=== PATIENT | male | born 1965 | race Caucasian/White ===

== ENCOUNTER 2017-10-16 14:45 | Emergency (ER) | payer OTHER ==
[~2017-10-16] VITALS: Ht 180.3 cm; Wt 99.8 kg
[2017-10-16 15:51] VITALS: BP 150/93
--- NOTE | 2017-10-16 16:10 | NUR ---
PT AA&OX4, RR EVEN/UNLABORED AT THIS TIME; PT TO LOBBY AWAITING OPEN BED.
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
--- NOTE | 2017-10-16 17:58 | NUR ---
PER [facility] ELLIOTT, PT IS NOW A PRE-BOOK. PT AMBULATED TO OF AT THIS TIME.
--- NOTE | 2017-10-16 18:04 | NUR ---
52M BIB SELF C/O MID-CHEST PAIN X 1200 TODAY. PT STATES " ALL I WANT IS MY PRESCRIPTION FOR TRAMADOL SO I CAN GO HOME". HX: HTN, DEPRESSION RX: XYPREXA . PT NOW PREBOOK; [place] [employer] AT BEDSIDE; DENIES N/V/D; SKIN IS PINK/WARM/DRY; AAOX4 WITH EVEN AND STEADY GAIT; LUNGS CLEAR BL; HR EVEN AND REGULAR; PT DENIES ANY FEVER, CP, SOB, OR COUGH AT THIS TIME; PATIENT STATES PAIN OF 10/10 AT THIS TIME; VSS; PATIENT POSITIONED FOR COMFORT; ER MD MADE AWARE OF PT STATUS.
[2017-10-16 18:36] VITALS: BP 151/101
--- NOTE | 2017-10-16 18:36 | NUR ---
Patient discharged with v/s stable. Written and verbal after care instructions given and explained. Patient alert, oriented and verbalized understanding of instructions. Ambulatory with in custody. All questions addressed prior to discharge. ID band removed. Patient advised to follow up with PMD. Rx of TRAMADOL given. Patient educated on indication of medication including possible reaction and side effects. Opportunity to ask questions provided and answered.
== END 2017-10-16 18:36 ==
LOC: MED 14:45
DX: Z02.89 Encounter for other administrative examinations (principal); R94.31 Abnormal electrocardiogram [ECG] [EKG]; I10 Essential (primary) hypertension; Z88.2 Allergy status to sulfonamides; Z88.0 Allergy status to penicillin; Z88.8 Allergy status to other drugs, medicaments and biological substances
CPT/HCPCS: 93005; 99283